=== PATIENT | male | born 1980 | race Caucasian/White ===

== ENCOUNTER 2018-04-24 14:50 | Emergency (ER) | payer BC ==
[~2018-04-24] VITALS: Ht 182.9 cm; Wt 100.0 kg
[~2018-04-24 14:50] MED LIST: ADDE10TA PO; DOCU1CAP39 PO; PERC5TAB12 PO
[2018-04-24 15:05] VITALS: BP 144/88; PULSE 74; RESP 16; TEMP 98.6; O2SAT 98
[2018-04-24] MEDS ORDERED: DEXAMETHASONE SOD PHOS 4 MG/ML VIAL IM ONE (16:45)
[2018-04-24] MEDS ORDERED: KETOROLAC TROMETHAMINE 60 MG/2 ML (IM) VIAL IM ONE (16:45)
[2018-04-24] MEDS ORDERED: ORPHENADRINE INJ 60 MG/2 ML AMP IM ONE (16:45)
[2018-04-24] MEDS ORDERED: FAMOTIDINE 20 MG TAB PO ONE (16:45)
--- NOTE | 2018-04-24 16:47 | PD ---
HPI Chief Complaint: Back/ Neck Pain or Injury Time Seen by Provider: 16:30 Travel History International Travel<30 days: No Contact w/Intl Traveler<30days: No Traveled to known affect area: No History of Present Illness HPI 38-year-old male presents to the emergency room for evaluation of right-sided, low back pain for the past 2 days. Pain started after patient was lifting a heavy toolbox while turned to the side. Pain is severe, sharp. States since onset of symptoms and has improved slightly. Worse with any motion or walking. No radiation. He has been taking 500 mg of Aleve multiple times daily with mild relief in symptoms. He has also been applying ice and back brace. He denies upper or lower extremity paresthesias, saddle anesthesia, loss of bowel bladder control, weight loss, night sweats, fever, chills, nausea, vomiting, or IV drug use. No chronic medical conditions or daily medications. PFSH Past Medical History Asthma: Yes (As a kid.) Autoimmune Disease: No Blood Disorders: No Cancer: No Cardiovascular Problems: No Diabetes: No Diminished Hearing: No Genitourinary: No Musculoskeletal: No Neurologic: No Psychiatric: No Respiratory: Yes Past Surgical History Abdominal Surgery: No Cardiac Surgery: No Ear Surgery: No Endocrine Surgery: No Eye Surgery: No Genitourinary Surgery: No Gynecologic Surgery: No Oral Surgery: No Pacemaker: No Thoracic Surgery: No Social History Alcohol Use: No Tobacco Use: No Substance Use: No Allergies-Medications (Allergen,Severity, Reaction): Coded Allergies: chicken derived (Unverified Allergy, Severe, 06/20/17) Reported Meds & Prescriptions Reported Meds & Active Scripts Active Reported Percocet (Oxycodone/Acetaminophen) 5 Mg/325 Mg Tab 1 Tab PO Q4H PRN Colace 100 Mg Cap (Docusate Sodium) 100 Mg Cap 100 Mg PO BID Adderall (Amphetamine/Dextroamphetamine) 10 Mg Tab 10 Mg PO DAILY Review of Systems Except as stated in HPI: all other systems reviewed are Neg Physical Exam Narrative GENERAL: Well-nourished, well-developed male in no acute distress. Afebrile. Ambulatory with antalgic gait. SKIN: Focused skin assessment warm/dry. No erythema or ecchymosis. HEAD: Normocephalic. EYES: No scleral icterus. No injection or drainage. NECK: Supple, trachea midline. No JVD or lymphadenopathy. CARDIOVASCULAR: Regular rate and rhythm without murmurs, gallops, or rubs. RESPIRATORY: Breath sounds equal bilaterally. No accessory muscle use. BACK: No midline tenderness. No obvious deformity. No CVA tenderness. Positive straight leg raise on the right. 2+ patellar and Achilles reflexes are equal bilaterally. Mild tenderness to palpation of the right, lumbar paraspinous musculature. Data Data Last Documented VS Vital Signs Date Time Temp Pulse Resp B/P (MAP) Pulse Ox O2 Delivery O2 Flow Rate FiO2 04/24/18 15:05 98.6 74 16 144/88 (106) 98 Orders Orders Ketorolac Inj (Toradol Inj) (04/24/18 16:45) Orphenadrine Inj (Norflex Inj) (04/24/18 16:45) Dexamethasone Inj (Decadron Inj) (04/24/18 16:45) Famotidine (Pepcid) (04/24/18 16:45) Ed Discharge Order (04/24/18 17:04) [facility] Medical Decision Making Medical Screen Exam Complete: Yes Emergency Medical Condition: Yes Medical Record Reviewed: Yes Differential Diagnosis Strain, spasm, contusion, fracture, dislocation Narrative Course 38-year-old otherwise healthy male presents to the emergency room for evaluation of right-sided, low back pain for the past 2 days. Pain started after lifting a heavy toolbox. No red flag symptoms. Vital signs stable. Patient is ambulatory with antalgic gait. No focal neurological deficits. No midline tenderness. No indication for imaging. Patient given Toradol, Norflex , Decadron, and Pepcid in the emergency room. Discharged with prescriptions for ibuprofen and Robaxin. Told to follow-up with primary care physician or return for worsening symptoms. He understands and agrees to plan. Diagnosis Primary Impression: Low back strain Qualified Codes: S39.012A - Strain of muscle, fascia and tendon of lower back , initial encounter Referrals: Primary Care Physician Additional Instructions: Rest and drink plenty of fluids. Take Robaxin as directed, as needed for pain. Take ibuprofen with food as directed, as needed for pain. Do not take Aleve while taking this. Apply ice to the affected area for 20 minutes at a time, as needed for pain and swelling. Follow-up with a primary care physician. Return to the emergency room for worsening symptoms. Med/Other Pt SpecificInfo: Prescription(s) given Scripts Ibuprofen (Ibuprofen) 800 Mg Tab 800 MG PO Q8H Y for Pain/Inflammation, #15 TAB 0 Refills Prov: Yuriy Graf MD 04/24/18 Methocarbamol (Robaxin) 750 Mg Tab 750 MG PO Q8HR for Muscle Spasm, #15 TAB 0 Refills Prov: Yuriy Graf MD 04/24/18 Disposition: 01 DISCHARGE HOME Condition: Stable Zarina Rubio Apr 24, 2018 16:47
[2018-04-24] MEDS ORDERED: IBUP1TAB7 PO (17:05)
[2018-04-24] MEDS ORDERED: ROBA750T PO (17:05)
== END 2018-04-24 17:39 | disposition home or self-care (01) ==
LOC: NEPK 14:50
DX: S39.012A Strain of muscle, fascia and tendon of lower back, initial encounter (principal); J45.909 Unspecified asthma, uncomplicated; X50.0XXA Overexertion from strenuous movement or load, initial encounter; Z79.899 Other long term (current) drug therapy
CPT/HCPCS: 96372; 99283; J1100; J1885; J2360